=== PATIENT | female | born 1945 | race Two or more races ===

== ENCOUNTER 2023-04-10 21:52 | Emergency (ER) | payer OTHER ==
[~2023-04-10] VITALS: Ht 149.9 cm; Wt 48.0 kg
[2023-04-11 00:40] VITALS: BP 134/69
[2023-04-11] MEDS ORDERED: ACET500T58 PO (01:46)
== END 2023-04-11 02:01 | disposition home or self-care (01) ==
LOC: EDSEX 21:52 → EDBD 21:52 → ER 21:52
DX: R51.9 Headache, unspecified (principal); I10 Essential (primary) hypertension; E78.5 Hyperlipidemia, unspecified; Z88.5 Allergy status to narcotic agent; Z88.8 Allergy status to other drugs, medicaments and biological substances; Z79.1 Long term (current) use of non-steroidal anti-inflammatories (NSAID); V89.2XXA Person injured in unspecified motor-vehicle accident, traffic, initial encounter; Y93.89 Activity, other specified; Y92.488 Other paved roadways as the place of occurrence of the external cause; Y99.8 Other external cause status
CPT/HCPCS: 70450